=== PATIENT | male | born 1935 | race Caucasian/White ===

== ENCOUNTER → 2019-05-06 13:59 | Outpatient (CLI) | payer MEDICARE, BC, SELFPAY ==
--- NOTE | 2019-05-06 | DI.RAD.S_ITS ---
PROCEDURE: XR CERVICAL SPINE 2V OR 3V INDICATIONS: NECK PAIN TECHNIQUE: 3 view(s) of the cervical spine were acquired. COMPARISON: [facility], CERVICAL SPINE 2 OR 3 VIEWS, 02/19/2016, 13:31. FINDINGS: Bones: No fractures or dislocations to the C6 level. The lateral masses of C1 appear intact on the odontoid view. No suspicious bony lesions. Multilevel degenerative endplate sclerosis and spurring. Diffuse facet arthropathy. Straightening of the normal lordotic curvature. Severe narrowing of the C3-C4, C5-C6 and C6-C7 disc spaces. Prominent bulky anterior osteophyte formation. Chronic ossicle projects at the tip of the C7 process Soft tissues: No prevertebral soft tissue swelling. IMPRESSION: Severe multilevel cervical spondylosis and facet arthropathy, markedly progressed since the prior study from 02/19/16. Dictated by: Dick Rowell M.D. on 05/06/2019 at 15:52 Approved by: Dick Rowell M.D. on 05/06/2019 at 15:54
--- NOTE | 2019-05-06 14:11 | DI.RAD.S_ITS ---
PROCEDURE: XR WRIST LT MIN 3V INDICATIONS: POSSIBLE LT WRIST FRACTURE TECHNIQUE: 3 views of the wrist were acquired. COMPARISON: [facility], , WRIST MINIMUM 3 VIEWS LEFT, 12/29/2014, 13:58. FINDINGS: Bones: No fractures or dislocations. No suspicious bony lesions. First CMC and triscaphe joint degeneration. Chondrocalcinosis projects in the ulnocarpal compartment Soft tissues: No suspicious soft tissue calcifications. IMPRESSION: No definite fracture identified however suboptimal evaluation given advanced arthritic changes. Chondrocalcinosis. First CMC and triscaphe joint degeneration Dictated by: Dick Rowell M.D. on 05/06/2019 at 15:50 Approved by: Dick Rowell M.D. on 05/06/2019 at 15:52
== END ==
PROVIDERS: PCP Family Medicine; Visit Provider Family Medicine
DX: M54.2 Cervicalgia (principal); M18.12 Unilateral primary osteoarthritis of first carpometacarpal joint, left hand; M11.232 Other chondrocalcinosis, left wrist; M47.812 Spondylosis without myelopathy or radiculopathy, cervical region
CPT/HCPCS: 72040; 73110

== ENCOUNTER → 2019-05-26 12:12 | Outpatient (CLI) | payer MEDICARE, BC, SELFPAY ==
--- NOTE | 2019-05-26 12:19 | DI.CT.S_ITS ---
PROCEDURE: CT CERVICAL SPINE WO CON INDICATIONS: Cervicalgia TECHNIQUE: Noncontrast 3 mm thick sections acquired from the skull base to the T4 level. Sagittal and coronal reformats were then constructed. For radiation dose reduction, the following was used: automated exposure control, adjustment of mA and/or kV according to patient size. COMPARISON: [facility], , CERVICAL SPINE 2 OR 3 VIEWS, 02/19/2016, 13:31. [facility], , XR CERVICAL SPINE 2V OR 3V, 05/06/2019, 14:06. FINDINGS: Image quality: Excellent. Bones: No fractures or dislocations. Visualized superior ribs are intact. Relatively prominent degenerative changes are seen throughout. There are prominent bridging anterior osteophytes seen at C4-C5, which project anteriorly 1.3 cm. Milder bridging anterior osteophytes can be seen at C3-C4, C5-C6, and C6-C7. Posteriorly directed endplate osteophytes are seen at C5-C6 and C6-C7. Focal degenerative change is also seen involving the C1-C2 interface anteriorly. Calcified pannus can be seen posterior to the dens. There is partial erosion of the dens. There is fusion of the bilateral C3-C4 facet joints. Milder degenerative changes are seen elsewhere within the facets. Soft tissues: Prevertebral soft tissues are normal in thickness. No paravertebral hematomas. No apical pneumothoraces. IMPRESSION: Relatively prominent degenerative changes are seen, including prominently projecting bridging anterior osteophytes at C4-C5. Dictated by: Rajat Cazares M.D. on 05/26/2019 at 11:55 Approved by: Rajat Cazares M.D. on 05/26/2019 at 12:01
== END ==
PROVIDERS: PCP Family Medicine; Visit Provider Family Medicine
DX: M54.2 Cervicalgia (principal); M47.812 Spondylosis without myelopathy or radiculopathy, cervical region
CPT/HCPCS: 72125